=== PATIENT | male | born 1995 | race African-American/Black ===

== ENCOUNTER 2022-10-04 11:22 | Inpatient (IN) | payer OTHER, BC ==
[~2022-10-04 11:22] MED LIST: Iopamidol-370 76% 500 ML 1 ML ONE
[2022-10-04] MEDS ORDERED: Fentanyl 100 MCG/2 ML VIAL ONE (11:37)
[2022-10-04] MEDS ORDERED: PROPOFOL 20 ML ONE ×2 (11:37→11:55)
[2022-10-04] MEDS ORDERED: Vancomycin 1 GM/200 ML (FROZEN) BAG ONE (12:02)
[2022-10-04] MEDS ORDERED: metroNIDAZOLE 500 MG/100 ML BAG ONE (12:02)
[2022-10-04 12:11] LABS: Hemoglobin 14.1 g/dL (14.0-18.0); Mean Corpuscular Hemoglobin 31.5 pg (27.0-31.0); Mean Corpuscular Volume 95.5 fl (78.0-98.0); Platelet Count 308 10x3/uL (130-400); Red Blood Cell (RBC) Count 4.49 mill/uL (4.70-6.10)
[2022-10-04 12:23] LABS: ALT (SGPT) 22 U/L (8-55); AST (SGOT) 24 U/L (5-34); Albumin 4.2 g/dL (3.5-5.0); Alkaline Phosphatase 57 U/L (40-110); Anion Gap 18 mmol/L (10-20); BUN (Urea Nitrogen) 15 mg/dL (8.9-20.6); Bilirubin, Total 0.3 mg/dL (0.2-1.2); Calc. Creatinine Clearance 0 mL/min (70-130); Calcium 8.9 mg/dL (7.8-10.44); Carbon Dioxide 20 mmol/L (22-29); Chloride 105 mmol/L (98-107); Estimated GFR 113; Globulin 2.9 g/dL (2.4-3.5); Glucose 168 mg/dL (70-105); Protein, Total 7.1 g/dL (6.0-8.3); Sodium 140 mmol/L (136-145)
[2022-10-04 12:35] LABS: Band 6 % (5-11); Lymphocytes 14 % (21-51); MDiff Complete? YES; Monocytes 8 % (0-10); Neutrophil 68 % (42-75); Platelet Morphology Comment Appears Adequate; RBC Morphology Normal; Reactive Lymphocytes 4 % (0-10)
[2022-10-04] MEDS ORDERED: Ketorolac Tromethamine 30 MG/ML VIAL ONE (13:09)
[2022-10-04] MEDS ORDERED: Ondansetron PF 4 MG/2 ML Vial ONE ×2 (13:09→14:08)
[2022-10-04] MEDS ORDERED: Boostrix 0.5 ML (Tdap) VIAL (>/=7 yrs of age) ONE (13:09)
[2022-10-04] MEDS ORDERED: Fentanyl 250 MCG/5 ML VIAL ONE (13:19)
[2022-10-04] MEDS ORDERED: Dextrose 50% Abboject 50 ML SYRINGE SLOW IVP PRN (13:31)
[2022-10-04] MEDS ORDERED: Ondansetron PF 4 MG/2 ML Vial IVP PRN ×3 (13:31→13:59)
[2022-10-04] MEDS ORDERED: Dextrose 5% in Water 1,000 ML IV PRN (13:31)
[2022-10-04] MEDS ORDERED: hydrALAZINE 20 MG/ML VIAL SLOW IVP PRN (13:31)
[2022-10-04] MEDS ORDERED: HYDROmorphone 10 mg/100 ml CADD IVPB PRN (13:34)
[2022-10-04] MEDS ORDERED: Promethazine HCl 25 MG/ML VIAL IM PRN ×5 (13:34→13:59)
[2022-10-04] MEDS ORDERED: Neomycin-Polymyxin 1 ML AMP ONE (13:34)
[2022-10-04] MEDS ORDERED: diphenhydrAMINE 50 MG/ML VIAL IVP PRN ×3 (13:34→13:59)
[2022-10-04] MEDS ORDERED: diphenhydrAMINE 25 MG CAP PO PRN ×3 (13:34→13:59)
[2022-10-04] MEDS ORDERED: diphenhydrAMINE 50 MG/ML VIAL IM PRN ×3 (13:34→13:59)
[2022-10-04] MEDS ORDERED: Cyclobenzaprine 10 MG TAB PO PRN (13:34)
[2022-10-04] MEDS ORDERED: Naloxone HCl 0.4 mg/ml Vial IV PRN ×3 (13:34→13:59)
[2022-10-04] MEDS ORDERED: Communication Order-Pharmacy FS SCH ×4 (13:45→16:15)
[2022-10-04] MEDS ORDERED: FENTANYL 500 MCG/10 ML VIAL 2,000 MCG in Sodium Chloride 0.9% 60 ML IV PRN (13:58)
[2022-10-04] MEDS ORDERED: Zolpidem Tartrate 5 MG TAB PO PRN ×2 (13:58→13:59)
[2022-10-04] MEDS ORDERED: Ondansetron HCl/PF 4 MG/2 ML Vial IVP PRN ×2 (13:58→13:59)
[2022-10-04] MEDS ORDERED: Dexamethasone 20 MG/5 ML VIAL ONE (14:08)
[2022-10-04] MEDS ORDERED: Succinylcholine Chloride 100 MG/5 ML SYRINGE FS ONE (14:08)
[2022-10-04] MEDS ORDERED: ePHEDrine 50 MG/ML VIAL ONE (14:08)
[2022-10-04] MEDS ORDERED: PROPOFOL 200 MG/20 ML VIAL ONE (14:08)
[2022-10-04] MEDS ORDERED: TETANUS, DIPHTHERIA TOX,ADULT (TDVAX) 0.5 ML VIAL IM ONE (16:03)
[2022-10-04] MEDS ORDERED: Gentamicin Sulfate 120 MG in Premix Bag 1 BAG IVPB SCH (17:00)
[2022-10-04] MEDS: Sodium Chloride 0.9% 1,000 ML IV SCH ×2 (17:50→21:05)
[2022-10-04 18:06] VITALS: BMI 33.2
[2022-10-04] MEDS: Ipratropium/Albuterol 3 ML NEB NEB SCH (18:24)
[2022-10-04 18:26] LABS: INR-International Normal Ratio 1.1; PTT 26.8 sec (22.9-36.1); Prothrombin Time 14.2 sec (12.0-14.7)
[2022-10-04] MEDS: Gabapentin 300 MG CAP PO SCH ×2 (18:28→20:17)
[2022-10-04 18:29] LABS: Lactic Acid 0.9 mmol/L (0.5-2.2)
[2022-10-04 18:33] LABS: Magnesium 1.6 mg/dL (1.6-2.6); Phosphorus 2.8 mg/dL (2.3-4.7)
[2022-10-04] MEDS: Acetaminophen 500 MG TAB PO SCH (18:35)
[2022-10-04] MEDS ORDERED: Potassium Phosphate 30 MMOL, Magnesium Sulfate 2 GM in Sodium Chloride 0.9% 250 ML IVPB SCH (19:11)
[2022-10-04] MEDS ORDERED: Magnesium 2 GM/50 ML(in water) 2 GM in Premix Bag 1 BAG IVPB SCH (19:15)
[2022-10-04] MEDS: Gentamicin Sulfate 120 MG in Premix Bag 1 BAG IVPB SCH (19:29)
[2022-10-04] MEDS: Aspirin 81 mg Enteric Coated Tablet PO SCH (20:17)
[2022-10-04] MEDS: Senokot S 8.6-50 MG TAB PO SCH (20:17)
[2022-10-04] MEDS: Famotidine/PF 20 mg/2ml Vial SLOW IVP SCH (20:17)
[2022-10-04] MEDS: CEFAZOLIN 2 GM in Sodium Chloride 0.9% 100 ML IVPB SCH (22:13)
[2022-10-05] MEDS: Acetaminophen 500 MG TAB PO SCH ×4 (00:27→18:33)
[2022-10-05] MEDS: CEFAZOLIN 2 GM in Sodium Chloride 0.9% 100 ML IVPB SCH ×2 (05:31→15:08)
[2022-10-05 06:41] LABS: Lactic Acid 1.6 mmol/L (0.5-2.2)
[2022-10-05 06:53] LABS: Anion Gap 14 mmol/L (10-20); BUN (Urea Nitrogen) 9 mg/dL (8.9-20.6); CK (CPK) 3354 U/L (30-200); Calc. Creatinine Clearance 213 mL/min (70-130); Calcium 8.1 mg/dL (7.8-10.44); Carbon Dioxide 18 mmol/L (22-29); Chloride 108 mmol/L (98-107); Estimated GFR 126; Glucose 116 mg/dL (70-105); Magnesium 1.7 mg/dL (1.6-2.6); Phosphorus 3.1 mg/dL (2.3-4.7); Potassium 4.3 mmol/L (3.5-5.1); Sodium 136 mmol/L (136-145)
[2022-10-05] MEDS: Ipratropium/Albuterol 3 ML NEB NEB SCH ×3 (06:58→18:06)
[2022-10-05] MEDS ORDERED: PHOS-NAK 1 PKT PACK PO SCH (08:00)
[2022-10-05] MEDS ORDERED: Magnesium 2 GM/50 ML(in water) 2 GM in Premix Bag 1 BAG IVPB SCH (08:00)
[2022-10-05] MEDS: Gabapentin 300 MG CAP PO SCH ×3 (08:30→21:52)
[2022-10-05] MEDS: Famotidine/PF 20 mg/2ml Vial SLOW IVP SCH ×2 (08:30→21:52)
[2022-10-05] MEDS: Aspirin 81 mg Enteric Coated Tablet PO SCH ×2 (08:31→21:51)
[2022-10-05] MEDS: Senokot S 8.6-50 MG TAB PO SCH ×2 (08:33→21:52)
[2022-10-05] MEDS: Sodium Chloride 0.9% 1,000 ML IV SCH ×2 (08:33→18:00)
[2022-10-05] MEDS: Polyethylene Glycol 3350 17 GM Packet PO SCH (08:33)
[2022-10-05 09:13] LABS: #Lymphocytes 2.8 thou/uL (1.20-3.40); #Monocytes 1.4 thou/uL (0.11-0.59); #Neutrophils 8.9 thou/uL (1.40-6.50); %Basophils 0.1 % (0.0-1.0); %Eosinophils 0.2 % (0.0-10.0); %Lymphocytes 21.2 % (21.0-51.0); %Monocytes 10.6 % (0.0-10.0); %Neutrophils 67.9 % (42.0-75.0); Hemoglobin 10.8 g/dL (14.0-18.0); Mean Corpuscular HGB CONC 32.7 g/dL (32.0-36.0); Mean Corpuscular Hemoglobin 31.4 pg (27.0-31.0); Mean Corpuscular Volume 96.2 fl (78.0-98.0); Platelet Count 276 10x3/uL (130-400); Red Blood Cell (RBC) Count 3.44 mill/uL (4.70-6.10); White Blood Cell (WBC) Count 13.1 10x3/uL (4.8-10.8)
[2022-10-05] MEDS: Gentamicin Sulfate 120 MG in Premix Bag 1 BAG IVPB SCH (18:34)
[2022-10-05] MEDS: HYDROmorphone/PF 10 MG in Sodium Chloride 0.9% 99 ML IVPB PRN (21:52)
[2022-10-06] MEDS: Sodium Chloride 0.9% 1,000 ML IV SCH ×2 (00:30→11:31)
[2022-10-06] MEDS: Acetaminophen 500 MG TAB PO SCH ×5 (00:30→23:37)
[2022-10-06 06:03] LABS: #Monocytes 1.2 thou/uL (0.11-0.59); #Neutrophils 5.2 thou/uL (1.40-6.50); %Basophils 0.3 % (0.0-1.0); %Eosinophils 0.2 % (0.0-10.0); %Lymphocytes 38.6 % (21.0-51.0); %Monocytes 11.4 % (0.0-10.0); %Neutrophils 49.5 % (42.0-75.0); Hemoglobin 8.8 g/dL (14.0-18.0); Mean Corpuscular HGB CONC 32.5 g/dL (32.0-36.0); Mean Corpuscular Hemoglobin 31.3 pg (27.0-31.0); Mean Corpuscular Volume 96.6 fl (78.0-98.0); Mean Platelet Volume 8.2 fL (7.4-10.4); Platelet Count 235 10x3/uL (130-400); RBC Distribution Width 11.7 % (11.5-14.5); White Blood Cell (WBC) Count 10.4 10x3/uL (4.8-10.8)
[2022-10-06 06:51] LABS: Anion Gap 10 mmol/L (10-20); BUN (Urea Nitrogen) 6 mg/dL (8.9-20.6); Calc. Creatinine Clearance 231 mL/min (70-130); Calcium 8.2 mg/dL (7.8-10.44); Carbon Dioxide 25 mmol/L (22-29); Chloride 108 mmol/L (98-107); Estimated GFR 129; Glucose 93 mg/dL (70-105); Magnesium 2.1 mg/dL (1.6-2.6); Phosphorus 2.4 mg/dL (2.3-4.7); Potassium 3.8 mmol/L (3.5-5.1); Sodium 139 mmol/L (136-145)
[2022-10-06] MEDS: Ipratropium/Albuterol 3 ML NEB NEB SCH ×3 (06:57→18:30)
[2022-10-06] MEDS ORDERED: PHOS-NAK 1 PKT PACK PO SCH (07:30)
[2022-10-06] MEDS: Famotidine/PF 20 mg/2ml Vial SLOW IVP SCH ×2 (07:56→20:08)
[2022-10-06] MEDS: Gabapentin 300 MG CAP PO SCH ×3 (07:57→20:08)
[2022-10-06] MEDS: Aspirin 81 mg Enteric Coated Tablet PO SCH ×2 (07:57→20:08)
[2022-10-06] MEDS: Polyethylene Glycol 3350 17 GM Packet PO SCH (07:58)
[2022-10-06] MEDS: Senokot S 8.6-50 MG TAB PO SCH ×2 (07:58→20:08)
[2022-10-06] MEDS ORDERED: Vancomycin 1 GM in Premix Bag 1 BAG IVPB SCH (14:00)
[2022-10-06] MEDS ORDERED: Gentamicin Sulfate 100 MG in Premix Bag 1 BAG IVPB SCH (14:00)
[2022-10-06 18:56] LABS: SARS-CoV-2 NAA Rapid Test Not Detected (NotDetected)
[2022-10-07] MEDS: HYDROmorphone/PF 10 MG in Sodium Chloride 0.9% 99 ML IVPB PRN ×2 (04:54→15:17)
[2022-10-07] MEDS: Acetaminophen 500 MG TAB PO SCH ×4 (04:56→23:24)
[2022-10-07 06:16] LABS: #Lymphocytes 3.6 thou/uL (1.20-3.40); #Monocytes 1.5 thou/uL (0.11-0.59); %Basophils 0.3 % (0.0-1.0); %Eosinophils 0.3 % (0.0-10.0); %Lymphocytes 27.5 % (21.0-51.0); %Monocytes 11.5 % (0.0-10.0); %Neutrophils 60.4 % (42.0-75.0); Hemoglobin 7.9 g/dL (14.0-18.0); Mean Corpuscular HGB CONC 32.7 g/dL (32.0-36.0); Mean Corpuscular Hemoglobin 31.4 pg (27.0-31.0); Mean Platelet Volume 7.8 fL (7.4-10.4); Platelet Count 269 10x3/uL (130-400); RBC Distribution Width 11.9 % (11.5-14.5); Red Blood Cell (RBC) Count 2.52 mill/uL (4.70-6.10); White Blood Cell (WBC) Count 13.2 10x3/uL (4.8-10.8)
[2022-10-07 06:30] LABS: Anion Gap 11 mmol/L (10-20); BUN (Urea Nitrogen) 4 mg/dL (8.9-20.6); Calc. Creatinine Clearance 254 mL/min (70-130); Calcium 8.6 mg/dL (7.8-10.44); Carbon Dioxide 26 mmol/L (22-29); Chloride 107 mmol/L (98-107); Estimated GFR 133; Glucose 103 mg/dL (70-105); Magnesium 1.9 mg/dL (1.6-2.6); Phosphorus 2.6 mg/dL (2.3-4.7); Potassium 3.8 mmol/L (3.5-5.1); Sodium 140 mmol/L (136-145)
[2022-10-07] MEDS: Ipratropium/Albuterol 3 ML NEB NEB SCH ×3 (08:07→19:15)
[2022-10-07] MEDS: Polyethylene Glycol 3350 17 GM Packet PO SCH (09:00)
[2022-10-07] MEDS: Aspirin 81 mg Enteric Coated Tablet PO SCH (09:00)
[2022-10-07] MEDS: Famotidine/PF 20 mg/2ml Vial SLOW IVP SCH ×2 (09:00→20:22)
[2022-10-07] MEDS: Senokot S 8.6-50 MG TAB PO SCH ×2 (09:00→20:23)
[2022-10-07] MEDS: Gabapentin 300 MG CAP PO SCH ×3 (09:00→20:22)
[2022-10-07] MEDS ORDERED: Neomycin-Polymyxin 1 ML AMP ONE ×2 (10:13→11:52)
[2022-10-07] MEDS ORDERED: fentaNYL PF 100 MCG/2 ML SYRINGE ONE (10:21)
[2022-10-07] MEDS ORDERED: Vancomycin 1 GM/200 ML (FROZEN) BAG ONE (10:40)
[2022-10-07] MEDS ORDERED: Lidocaine 1% PF 5 ML VIAL ONE (11:19)
[2022-10-07] MEDS ORDERED: Dexamethasone 20 MG/5 ML VIAL ONE (11:19)
[2022-10-07] MEDS ORDERED: PROPOFOL 200 MG/20 ML VIAL ONE (11:19)
[2022-10-07] MEDS ORDERED: Ondansetron PF 4 MG/2 ML Vial ONE (11:19)
[2022-10-07] MEDS ORDERED: HYDROmorphone 2 MG/ML VIAL ONE (11:46)
[2022-10-07] MEDS ORDERED: Ondansetron HCl/PF 4 MG/2 ML Vial IVP PRN (13:40)
[2022-10-07] MEDS ORDERED: Promethazine HCl 25 MG/ML VIAL IM PRN (13:40)
[2022-10-07] MEDS ORDERED: Ketorolac Tromethamine 30 MG/ML VIAL IVP PRN (13:40)
[2022-10-07] MEDS ORDERED: HYDROmorphone 2 MG/ML VIAL SLOW IVP PRN (13:40)
[2022-10-07] MEDS ORDERED: Morphine 2 MG/ML VIAL SLOW IVP PRN (13:41)
[2022-10-07] MEDS ORDERED: Morphine 4 MG/ML VIAL SLOW IVP PRN (13:41)
[2022-10-07] MEDS ORDERED: HYDROcodone/Acetaminophen 10/325 mg Tablet PO PRN ×2 (13:41)
[2022-10-07] MEDS ORDERED: Communication Order-Pharmacy FS SCH ×2 (13:45→14:00)
[2022-10-07] MEDS ORDERED: Fentanyl 250 MCG/5 ML VIAL ONE (14:02)
[2022-10-07] MEDS: Ferrous Sulfate 325 MG TAB PO SCH (15:22)
[2022-10-07] MEDS: Ascorbic Acid 500 mg Chewable Tablet PO SCH (15:22)
[2022-10-07] MEDS ORDERED: traMADol HCl 50 MG TAB PO PRN (17:40)
[2022-10-07] MEDS: traMADol HCl 50 MG TAB PO SCH ×2 (18:20→23:24)
[2022-10-07] MEDS ORDERED: Aspirin 81 mg Enteric Coated Tablet PO SCH ×2 (21:00)
[2022-10-07] MEDS: Vancomycin 1 GM in Premix Bag 1 BAG IVPB SCH (23:25)
[2022-10-08 03:46] LABS: Hemoglobin 8.3 g/dL (14.0-18.0); Mean Corpuscular HGB CONC 34.4 g/dL (32.0-36.0); Mean Corpuscular Hemoglobin 32.8 pg (27.0-31.0); Mean Corpuscular Volume 95.2 fl (78.0-98.0); Mean Platelet Volume 7.6 fL (7.4-10.4); Platelet Count 340 10x3/uL (130-400); RBC Distribution Width 11.8 % (11.5-14.5); Red Blood Cell (RBC) Count 2.53 mill/uL (4.70-6.10); White Blood Cell (WBC) Count 16.7 10x3/uL (4.8-10.8)
[2022-10-08] MEDS ORDERED: Lactated Ringer's 1,000 ML IV SCH (04:00)
[2022-10-08 04:20] LABS: Band 5 % (5-11); Lymphocytes 16 % (21-51); Monocytes 11 % (0-10); Neutrophil 68 % (42-75)
[2022-10-08 04:21] LABS: MDiff Complete? YES
[2022-10-08 04:33] LABS: Anion Gap 12 mmol/L (10-20); BUN (Urea Nitrogen) 7 mg/dL (8.9-20.6); Calc. Creatinine Clearance 213 mL/min (70-130); Calcium 9.5 mg/dL (7.8-10.44); Carbon Dioxide 27 mmol/L (22-29); Chloride 102 mmol/L (98-107); Estimated GFR 126; Glucose 152 mg/dL (70-105); Magnesium 2.1 mg/dL (1.6-2.6); Phosphorus 3.7 mg/dL (2.3-4.7); Potassium 4.2 mmol/L (3.5-5.1); Sodium 137 mmol/L (136-145)
[2022-10-08] MEDS: traMADol HCl 50 MG TAB PO SCH ×3 (06:02→18:27)
[2022-10-08] MEDS: Acetaminophen 500 MG TAB PO SCH ×3 (06:02→18:27)
[2022-10-08] MEDS ORDERED: traMADol HCl 50 MG TAB PO PRN (06:52)
[2022-10-08] MEDS ORDERED: Morphine 2 MG/ML VIAL SLOW IVP PRN (06:52)
[2022-10-08] MEDS ORDERED: Ibuprofen 200 MG TAB PO PRN (06:53)
[2022-10-08] MEDS ORDERED: Morphine 4 MG/ML VIAL SLOW IVP PRN (07:00)
[2022-10-08] MEDS: Ipratropium/Albuterol 3 ML NEB NEB SCH ×3 (07:39→18:54)
[2022-10-08 07:48] LABS: #Lymphocytes 2.8 thou/uL (1.20-3.40); #Monocytes 1.9 thou/uL (0.11-0.59); #Neutrophils 9.3 thou/uL (1.40-6.50); %Basophils 0.1 % (0.0-1.0); %Eosinophils 0.3 % (0.0-10.0); %Lymphocytes 19.7 % (21.0-51.0); %Monocytes 13.5 % (0.0-10.0); %Neutrophils 66.3 % (42.0-75.0); Hemoglobin 6.8 g/dL (14.0-18.0); Mean Corpuscular HGB CONC 32.8 g/dL (32.0-36.0); Mean Corpuscular Hemoglobin 31.7 pg (27.0-31.0); Mean Corpuscular Volume 96.7 fl (78.0-98.0); Mean Platelet Volume 7.7 fL (7.4-10.4); Platelet Count 313 10x3/uL (130-400); RBC Distribution Width 11.7 % (11.5-14.5); Red Blood Cell (RBC) Count 2.14 mill/uL (4.70-6.10); White Blood Cell (WBC) Count 14.1 10x3/uL (4.8-10.8)
[2022-10-08] MEDS ORDERED: Famotidine 20 MG TAB PO SCH (09:00)
[2022-10-08] MEDS ORDERED: Saccharomyces boulardii 250 MG CAP PO SCH (09:00)
[2022-10-08] MEDS ORDERED: TETANUS, DIPHTHERIA TOX,ADULT (TDVAX) 0.5 ML VIAL IM ONE (09:00)
[2022-10-08] MEDS ORDERED: Polyethylene Glycol 3350 17 GM Packet PO SCH (09:00)
[2022-10-08] MEDS ORDERED: Senokot S 8.6-50 MG TAB PO SCH (09:00)
[2022-10-08] MEDS: Senokot S 8.6-50 MG TAB PO SCH (10:41)
[2022-10-08] MEDS: Ferrous Sulfate 325 MG TAB PO SCH (10:43)
[2022-10-08] MEDS: Gabapentin 300 MG CAP PO SCH ×2 (10:43→17:11)
[2022-10-08] MEDS: Ascorbic Acid 500 mg Chewable Tablet PO SCH (10:43)
[2022-10-08] MEDS: Polyethylene Glycol 3350 17 GM Packet PO SCH (10:44)
[2022-10-08] MEDS ORDERED: Gentamicin Sulfate 100 MG in Premix Bag 1 BAG IVPB SCH (11:00)
[2022-10-08] MEDS ORDERED: traMADol HCl 50 MG TAB PO SCH (12:00)
[2022-10-08] MEDS: Vancomycin 1 GM in Premix Bag 1 BAG IVPB SCH (12:40)
[2022-10-08 17:09] VITALS: TEMP 98.3
[2022-10-08 18:14] VITALS: BP 112/73
== END 2022-10-08 20:35 | disposition home or self-care (01) | DRG 958 ==
LOC: ERS 11:22 → SDC 13:27 → SURG A 13:31
PROVIDERS: ADMIT Surgery; ATTEND Surgery
PROC: 0QHG05Z Insertion of External Fixation Device into Right Tibia, Open Approach (ICD-10-PCS; principal; 2022-10-04)
PROC: 0QSG04Z Reposition Right Tibia with Internal Fixation Device, Open Approach (ICD-10-PCS; 2022-10-04)
PROC: 0QPGX5Z Removal of External Fixation Device from Right Tibia, External Approach (ICD-10-PCS; 2022-10-04)
PROC: 0QSGXZZ Reposition Right Tibia, External Approach (ICD-10-PCS; 2022-10-04)
PROC: 30233N1 Transfusion of Nonautologous Red Blood Cells into Peripheral Vein, Percutaneous Approach (ICD-10-PCS; 2022-10-08)
DX: S82.141B Displaced bicondylar fracture of right tibia, initial encounter for open fracture type I or II (principal); D62 Acute posthemorrhagic anemia; T79.6XXA Traumatic ischemia of muscle, initial encounter; S85.1 Injury of tibial artery; Z20.822 Contact with and (suspected) exposure to COVID-19; S82.831B Other fracture of upper and lower end of right fibula, initial encounter for open fracture type I or II; V86.55XA Driver of 3- or 4- wheeled all-terrain vehicle (ATV) injured in nontraffic accident, initial encounter; Y92.9 Unspecified place or not applicable; S82.251B Displaced comminuted fracture of shaft of right tibia, initial encounter for open fracture type I or II
CPT/HCPCS: 27752; 36415; 36430; 70450; 71045; 72125; 75635; 80048; 80053; 82550; 83605; 83735; 84100; 85025; 85610; 85730; 86850; 86900; 86901; 90471; 90715; 93005; 93010; 94640; 96374; 96375; C1713; G0390; J1100; J1170; J1580; J1650; J1885; J2405; J2704; J3010; J3370-JW; J3475; J3490; J7030; J7050; J7120; J7620; P9016; Q9967; S0028; U0002

== ENCOUNTER 2022-10-09 21:32 | Emergency (ER) | payer BC | END 2022-10-09 22:30 | disposition home or self-care (01) | LOC: ERS 21:32 | DX: M79.674 Pain in right toe(s) (principal) | CPT/HCPCS: 99283 ==